=== PATIENT | female | born 1985 | race African-American/Black ===

== ENCOUNTER 2019-08-11 13:08 | Observation (INO) | payer MEDICAID ==
[~2019-08-11 13:08] MED LIST: IBUP1TAB73 PO; KEPP500 MT; LEVO75TA7 MT
== END 2019-08-11 14:15 | disposition home or self-care (01) ==
LOC: 8 EST LDRP 13:08
PROVIDERS: ADMIT Obstetrics & Gynecology; ATTEND Obstetrics & Gynecology
DX: O9A.212 Injury, poisoning and certain other consequences of external causes complicating pregnancy, second trimester (principal); R10.9 Unspecified abdominal pain; M54.9 Dorsalgia, unspecified; Z3A.27 27 weeks gestation of pregnancy; Y04.0XXA Assault by unarmed brawl or fight, initial encounter; Y93.89 Activity, other specified; Y92.89 Other specified places as the place of occurrence of the external cause; Y99.8 Other external cause status
CPT/HCPCS: G0378

== ENCOUNTER 2022-07-01 00:20 | Emergency (ER) | payer MEDICAID ==
[~2022-07-01] VITALS: Ht 165.1 cm; Wt 68.0 kg
[2022-07-01 00:31] VITALS: BP 113/67
[2022-07-01 03:00] LABS: BASOPHILS % 0.7 % (0.0-2.0); EOSINOPHILS % 0.6 % (0.0-5.0); HEMATOCRIT. 32.5 % (36.0-48.0); HEMOGLOBIN. 10.6 g/dL (12.0-16.0); LYMPHOCYTES % 32.7 % (20.0-50.0); MEAN CORPUSCULAR HEMOGLOBIN 24.2 pg (28.0-32.0); MEAN CORPUSCULAR VOLUME 74.3 fL (81.0-99.0); MEAN PLATELET VOLUME 7.6 fl (7.4-10.4); MONOCYTES % 8.8 % (2.0-8.0); NEUTROPHILS % 57.2 % (40.0-76.0); PLATELET 330 x1000/uL (130-400); RED BLOOD CELL COUNT 4.37 mill/uL (4.2-5.4); RED CELL DISTRIBUTION WIDTH 19.8 % (11.6-14.6)
[2022-07-01 03:08] LABS: CHLORIDE 109 mEq/L (98-107)
[2022-07-01] MEDS ORDERED: PREGABALIN 50 MG CAPSULE PO NR (03:33)
[2022-07-01] MEDS ORDERED: IBUPROFEN 600MG TABLET PO NR (03:33)
[2022-07-01] MEDS ORDERED: METHOCARBAMOL 500MG TABLET PO NR (03:45)
[2022-07-01] MEDS ORDERED: PHENYTOIN SODIUM EXTENDED 100MG CAPSULE PO NR (03:45)
[2022-07-01 04:50] LABS: HCG SCREEN NEGATIVE
== END 2022-07-01 04:36 | disposition home or self-care (01) ==
LOC: ER 00:20
DX: S00.83XA Contusion of other part of head, initial encounter (principal); S49.91XA Unspecified injury of right shoulder and upper arm, initial encounter; G40.909 Epilepsy, unspecified, not intractable, without status epilepticus; G89.4 Chronic pain syndrome; E11.9 Type 2 diabetes mellitus without complications; Y04.0XXA Assault by unarmed brawl or fight, initial encounter; Y93.89 Activity, other specified; Y92.89 Other specified places as the place of occurrence of the external cause
CPT/HCPCS: 36415; 80048; 81025; 82962; 84703; 85025; 99284

== ENCOUNTER 2022-12-10 23:34 | Emergency (ER) | payer MEDICAID ==
[~2022-12-10] VITALS: Ht 162.6 cm; Wt 59.0 kg
[2022-12-10 23:39] VITALS: BP 114/60; PULSE 98; RESP 18; TEMP 99.1; O2SAT 96
== END 2022-12-11 06:45 | disposition home or self-care (01) ==
LOC: ER 23:34
DX: S01.01XA Laceration without foreign body of scalp, initial encounter (principal); F17.200 Nicotine dependence, unspecified, uncomplicated; R51.9 Headache, unspecified; Z86.59 Personal history of other mental and behavioral disorders; Y04.0XXA Assault by unarmed brawl or fight, initial encounter; Y93.89 Activity, other specified; Y92.89 Other specified places as the place of occurrence of the external cause; Y99.8 Other external cause status
CPT/HCPCS: 12001; 99284

== ENCOUNTER 2023-07-05 16:38 | Emergency (ER) | payer MEDICAID, OTHER ==
[~2023-07-05] VITALS: Ht 165.1 cm; Wt 79.4 kg
[2023-07-05 16:48] VITALS: BP 115/71; RESP 16; O2SAT 99
[2023-07-05 16:54] VITALS: PULSE 112
[2023-07-05 18:15] VITALS: TEMP 98.2
[2023-07-05] MEDS ORDERED: ACETAMINOPHEN 325MG TABLET PO ONE (18:15)
[2023-07-05] MEDS ORDERED: MORPHINE SULFATE 4 MG/ML CPJ (NOT FOR IM USE) IV STA (22:16)
[2023-07-05] MEDS ORDERED: SODIUM CHLORIDE 0.9% 1,000 ML IV ONE (22:30)
[2023-07-05] MEDS ORDERED: AMPICILLIN SOD/SULBACTAM NA 3 G in SODIUM CHLORIDE 0.9% 100 ML IV SCH (22:30)
[2023-07-05 22:53] LABS: BASOPHILS % 0.6 % (0.0-2.0); EOSINOPHILS % 2.5 % (0.0-5.0); HEMATOCRIT. 27.4 % (36.0-48.0); HEMOGLOBIN. 8.7 g/dL (12.0-16.0); LYMPHOCYTES % 42.4 % (20.0-50.0); MEAN CORPUSCULAR HEMOGLOBIN 22.2 pg (28.0-32.0); MEAN CORPUSCULAR VOLUME 69.5 fL (81.0-99.0); MEAN PLATELET VOLUME 6.7 fl (7.4-10.4); MONOCYTES % 9.6 % (2.0-8.0); NEUTROPHILS % 44.9 % (40.0-76.0); PLATELET 335 x1000/uL (130-400); RED BLOOD CELL COUNT 3.93 mill/uL (4.2-5.4); RED CELL DISTRIBUTION WIDTH 18.2 % (11.6-14.6); WHITE BLOOD COUNT 6.4 x1000/uL (4.5-11.0)
[2023-07-05 22:54] LABS: ADD RBC MORPHOLOGY YES; DIFFERENTIAL COMMENT 1
[2023-07-05 23:05] LABS: ANISOCYTOSIS 1+; HYPOCHROMASIA 1+; MICROCYTOSIS 3+; PLATELET ESTIMATE NORMAL
[2023-07-05 23:07] LABS: ALANINE AMINOTRANSFERASE 17 IU/L (10-49); ALBUMIN 4.2 g/dL (3.2-4.8); ASPARTATE AMINOTRANSFERASE 23 IU/L (<34); BILIRUBIN TOTAL 0.3 mg/dL (0.1-1.0); CALCIUM 8.8 mg/dL (8.7-10.4); CARBON DIOXIDE 27 mEq/L (21-32); CHLORIDE 107 mEq/L (98-107); CREATININE 0.7 mg/dL (0.6-1.0); GLUCOSE 78 mg/dL (70-105); POTASSIUM 3.5 mEq/L (3.5-5.1); PROTEIN TOTAL 6.7 g/dL (6.0-8.3); SODIUM 140 mEq/L (136-145); UREA NITROGEN BLOOD 14 mg/dL (9-23)
== END 2023-07-06 01:45 | disposition left against medical advice (07) ==
LOC: ER 16:38
DX: S02.40FA Zygomatic fracture, left side, initial encounter for closed fracture (principal); S02.832A Fracture of medial orbital wall, left side, initial encounter for closed fracture; G89.11 Acute pain due to trauma; G40.909 Epilepsy, unspecified, not intractable, without status epilepticus; Z98.890 Other specified postprocedural states; Y08.89XA Assault by other specified means, initial encounter; Y93.89 Activity, other specified; Y92.89 Other specified places as the place of occurrence of the external cause; Y99.8 Other external cause status
CPT/HCPCS: 99284; 70450; 80053; 85025; 87040; 36415; 70486; 72125; J0295; J7050; J7030

== ENCOUNTER 2023-11-06 18:10 | Emergency (ER) | payer MEDICAID ==
[~2023-11-06] VITALS: Ht 167.6 cm; Wt 85.0 kg
[2023-11-06 18:31] VITALS: TEMP 98.5; O2SAT 100
[2023-11-06 19:02] LABS: BASOPHILS % 0.8 % (0.0-2.0); EOSINOPHILS % 1.4 % (0.0-5.0); HEMATOCRIT. 24.8 % (36.0-48.0); HEMOGLOBIN. 8.4 g/dL (12.0-16.0); LYMPHOCYTES % 30.1 % (20.0-50.0); MEAN CORPUSCULAR HEMOGLOBIN 23.1 pg (28.0-32.0); MEAN CORPUSCULAR HGB CONC 33.9 g/dL (31.0-37.0); MEAN CORPUSCULAR VOLUME 68.2 fL (81.0-99.0); MEAN PLATELET VOLUME 6.8 fl (7.4-10.4); MONOCYTES % 8.3 % (2.0-8.0); NEUTROPHILS % 59.4 % (40.0-76.0); PLATELET 452 x1000/uL (130-400); RED BLOOD CELL COUNT 3.64 mill/uL (4.2-5.4); WHITE BLOOD COUNT 8.6 x1000/uL (4.5-11.0)
[2023-11-06 19:08] LABS: ADD RBC MORPHOLOGY YES; DIFFERENTIAL COMMENT 1
[2023-11-06 19:09] LABS: CHLORIDE 107 mEq/L (98-107); SODIUM 138 mEq/L (136-145)
[2023-11-06 19:10] LABS: CALCIUM 8.8 mg/dL (8.7-10.4); CARBON DIOXIDE 28 mEq/L (21-32)
[2023-11-06 19:15] LABS: CREATININE 0.7 mg/dL (0.6-1.0); GLUCOSE 79 mg/dL (70-105); UREA NITROGEN BLOOD 10 mg/dL (9-23)
[2023-11-06 20:19] LABS: B-HCG QUANTITATIVE 128942 mIU/mL (<3)
[2023-11-06 20:23] LABS: ANISOCYTOSIS 2+; HYPOCHROMASIA 1+; MICROCYTOSIS 3+; PLATELET ESTIMATE INCREASED
[2023-11-06 20:57] VITALS: BP 118/57; PULSE 89; RESP 17
== END 2023-11-06 20:58 | disposition home or self-care (01) ==
LOC: ER 18:10
DX: O46.91 Antepartum hemorrhage, unspecified, first trimester (principal); Z3A.09 9 weeks gestation of pregnancy; Z85.9 Personal history of malignant neoplasm, unspecified; Z98.890 Other specified postprocedural states
CPT/HCPCS: 36415; 76801; 80048; 84702; 85025; 86850; 86900; 99284

== ENCOUNTER 2024-03-13 18:35 | Emergency (ER) | payer MEDICAID ==
[~2024-03-13] VITALS: Ht 165.1 cm; Wt 84.0 kg
[2024-03-13 18:40] VITALS: O2SAT 97
[2024-03-13] MEDS ORDERED: ACETAMINOPHEN 325MG TABLET PO PRN (19:15)
[2024-03-13 19:31] LABS: BASOPHILS % 0.5 % (0.0-2.0); EOSINOPHILS % 0.7 % (0.0-5.0); HEMATOCRIT. 26.7 % (36.0-48.0); HEMOGLOBIN. 8.5 g/dL (12.0-16.0); MEAN CORPUSCULAR HEMOGLOBIN 22.2 pg (28.0-32.0); MEAN CORPUSCULAR HGB CONC 31.8 g/dL (31.0-37.0); MEAN CORPUSCULAR VOLUME 69.7 fL (81.0-99.0); NEUTROPHILS % 75.8 % (40.0-76.0); PLATELET 384 x1000/uL (130-400); RED BLOOD CELL COUNT 3.83 mill/uL (4.2-5.4); RED CELL DISTRIBUTION WIDTH 20.4 % (11.6-14.6); WHITE BLOOD COUNT 9.8 x1000/uL (4.5-11.0)
[2024-03-13 19:34] LABS: CLARITY URINE CLOUDY (CLEAR); COLOR URINE YELLOW (YELLOW); GLUCOSE URINE NEGATIVE (NEGATIVE); KETONES URINE NEGATIVE (NEGATIVE); LEUKOCYTE ESTERASE URINE NEGATIVE (NEGATIVE); NITRITE URINE NEGATIVE (NEGATIVE); OCCULT BLOOD URINE NEGATIVE (NEGATIVE); PH URINE 6.5 (4.5-8.0); PROTEIN URINE NEGATIVE (NEGATIVE); SPECIFIC GRAVITY URINE 1.016 (1.005-1.030)
[2024-03-13 19:36] LABS: CHLORIDE 109 mEq/L (98-107); POTASSIUM 4.3 mEq/L (3.5-5.1); SODIUM 137 mEq/L (136-145)
[2024-03-13 19:37] LABS: CALCIUM 8.8 mg/dL (8.7-10.4); CARBON DIOXIDE 23 mEq/L (21-32)
[2024-03-13 19:38] LABS: DIFFERENTIAL COMMENT 1
[2024-03-13 19:42] LABS: CREATININE 0.7 mg/dL (0.6-1.0); GLUCOSE 87 mg/dL (70-105); INR 0.9; PROTHROMBIN TIME 9.9 sec (9.6-11.0); UREA NITROGEN BLOOD 12 mg/dL (9-23)
[2024-03-13 19:44] LABS: ALANINE AMINOTRANSFERASE 21 IU/L (10-49); ALBUMIN 3.7 g/dL (3.2-4.8); ASPARTATE AMINOTRANSFERASE 23 IU/L (<34); BILIRUBIN TOTAL 0.2 mg/dL (0.1-1.0); PROTEIN TOTAL 6.6 g/dL (6.0-8.3)
[2024-03-13 20:02] LABS: BACTERIA URINE TRACE; RBC URINE 0-2 /hpf (0-2); SQUAMOUS EPITHELIAL CELL URINE FEW /lpf (RARE/1+); WBC URINE 0-2 /hpf (0-2); YEAST URINE 1+
[2024-03-13 20:11] LABS: B-HCG QUANTITATIVE 92078 mIU/mL (<3)
[2024-03-13 20:15] VITALS: TEMP 36.94740
[2024-03-13 22:14] VITALS: BP 116/63; PULSE 86; RESP 16; O2SAT 98
[2024-03-13] MEDS ORDERED: MICO15CR9 VG (22:33)
== END 2024-03-13 23:15 | disposition home or self-care (01) ==
LOC: ER 18:35
DX: O23.42 Unspecified infection of urinary tract in pregnancy, second trimester (principal); N39.0 Urinary tract infection, site not specified; Z3A.26 26 weeks gestation of pregnancy; O26.892 Other specified pregnancy related conditions, second trimester; M25.551 Pain in right hip
CPT/HCPCS: 36415; 73502; 73552; 73590; 73610; 76705; 76815; 80053; 81003; 84702; 85025; 93970; 99284

== ENCOUNTER 2024-08-02 12:15 | Emergency (ER) | payer MEDICAID, OTHER ==
[~2024-08-02] VITALS: Ht 165.1 cm; Wt 91.0 kg
[~2024-08-02 12:15] MED LIST changes: +MICO15CR9 VG
[2024-08-02 12:21] VITALS: O2SAT 98
[2024-08-02 12:47] VITALS: BP 104/67; TEMP 37.2; O2SAT 100
[2024-08-02] MEDS: ALBUTEROL (0.083%) 2.5MG/3ML NEB HHN SCH (13:35)
[2024-08-02] MEDS: IPRATROPIUM BROMIDE (0.02%) 0.5MG/2.5ML NEB HHN STA (13:35)
[2024-08-02 13:40] VITALS: PULSE 98; RESP 24
[2024-08-02 14:31] LABS: BASOPHILS % 0.5 % (0.0-2.0); EOSINOPHILS % 1.6 % (0.0-5.0); HEMATOCRIT. 34.6 % (36.0-48.0); HEMOGLOBIN. 11.1 g/dL (12.0-16.0); LYMPHOCYTES % 28.5 % (20.0-50.0); MEAN CORPUSCULAR HEMOGLOBIN 24.8 pg (28.0-32.0); MEAN CORPUSCULAR HGB CONC 32.1 g/dL (31.0-37.0); MEAN CORPUSCULAR VOLUME 77.3 fL (81.0-99.0); MEAN PLATELET VOLUME 8.5 fl (7.4-10.4); MONOCYTES % 6.6 % (2.0-8.0); NEUTROPHILS % 62.8 % (40.0-76.0); PLATELET 348 x1000/uL (130-400); RED BLOOD CELL COUNT 4.48 mill/uL (4.2-5.4); RED CELL DISTRIBUTION WIDTH 31.6 % (11.6-14.6); WHITE BLOOD COUNT 11.3 x1000/uL (4.5-11.0)
[2024-08-02 14:32] LABS: DIFFERENTIAL COMMENT 1
[2024-08-02 14:33] LABS: ADD RBC MORPHOLOGY YES; CHLORIDE 112 mEq/L (98-107); POTASSIUM 4.1 mEq/L (3.5-5.1); SODIUM 144 mEq/L (136-145)
[2024-08-02 14:34] LABS: CALCIUM 8.9 mg/dL (8.7-10.4); CARBON DIOXIDE 25 mEq/L (21-32)
[2024-08-02 14:39] LABS: CREATININE 0.9 mg/dL (0.6-1.0); GLUCOSE 99 mg/dL (70-105); UREA NITROGEN BLOOD 14 mg/dL (9-23)
[2024-08-02 14:41] LABS: ALANINE AMINOTRANSFERASE 22 IU/L (10-49); ALBUMIN 4.1 g/dL (3.2-4.8); ASPARTATE AMINOTRANSFERASE 17 IU/L (<34)
[2024-08-02 14:42] LABS: BILIRUBIN TOTAL 0.2 mg/dL (0.1-1.0); PROTEIN TOTAL 7.2 g/dL (6.0-8.3)
[2024-08-02 14:49] LABS: BILIRUBIN DIRECT < 0.1 mg/dL (<=3.0)
[2024-08-02 14:56] LABS: ANISOCYTOSIS 3+; MICROCYTOSIS 1+; PLATELET ESTIMATE NORMAL
[2024-08-02 14:58] LABS: HCG SCREEN NEGATIVE
[2024-08-02] MEDS ORDERED: ALBU90AE INH (15:38)
[2024-08-02 17:50] LABS: INFLUENZA TYPE A Presumptive Negative (Pres. Neg.); INFLUENZA TYPE B Presumptive Negative (Pres. Neg.)
== END 2024-08-02 18:25 | disposition home or self-care (01) ==
LOC: ER 12:43
DX: J45.901 Unspecified asthma with (acute) exacerbation (principal); B34.9 Viral infection, unspecified; Z20.822 Contact with and (suspected) exposure to COVID-19; Z79.890 Hormone replacement therapy; Z79.899 Other long term (current) drug therapy
CPT/HCPCS: 80076; 80048; 84703; 85025; 87804 ×2; 36415; 71045; 94644; 99291; 87426; Z7610 ×2; 94640; 94664

== ENCOUNTER 2024-12-27 18:02 | Emergency (ER) | payer MEDICAID ==
[~2024-12-27] VITALS: Ht 167.6 cm; Wt 82.0 kg
[~2024-12-27 18:02] MED LIST changes: +ALBU90AE INH; +CYCL10TA21 MT; +IBUP-2029 MT; -IBUP1TAB73 PO; -MICO15CR9 VG
[2024-12-27 18:11] VITALS: TEMP 36.8; O2SAT 100
[2024-12-27 20:56] LABS: BASOPHILS % 0.7 % (0.0-2.0); EOSINOPHILS % 3.5 % (0.0-5.0); HEMATOCRIT. 33.3 % (36.0-48.0); HEMOGLOBIN. 11.4 g/dL (12.0-16.0); LYMPHOCYTES % 33.1 % (20.0-50.0); MEAN PLATELET VOLUME 6.7 fl (7.4-10.4); MONOCYTES % 8.6 % (2.0-8.0); NEUTROPHILS % 54.1 % (40.0-76.0); PLATELET 409 x1000/uL (130-400); RED BLOOD CELL COUNT 3.83 mill/uL (4.2-5.4); RED CELL DISTRIBUTION WIDTH 14.4 % (11.6-14.6)
[2024-12-27 21:09] LABS: CREATININE 1.0 mg/dL (0.6-1.0); UREA NITROGEN BLOOD 17 mg/dL (9-23)
[2024-12-27] MEDS: DIPHENHYDRAMINE 25MG CAPSULE PO ONE (21:15)
[2024-12-27] MEDS: BACITRACIN 14GM TUBE TOP ONE (22:39)
[2024-12-27] MEDS: DIPHENHYDRAMINE 25MG CAPSULE PO NR (22:51)
[2024-12-27 23:56] LABS: CLARITY URINE CLEAR (CLEAR); COLOR URINE YELLOW (YELLOW); GLUCOSE URINE NEGATIVE (NEGATIVE); KETONES URINE NEGATIVE (NEGATIVE); LEUKOCYTE ESTERASE URINE 1+ (NEGATIVE); NITRITE URINE NEGATIVE (NEGATIVE); OCCULT BLOOD URINE NEGATIVE (NEGATIVE); PH URINE 5.5 (4.5-8.0); PROTEIN URINE NEGATIVE (NEGATIVE); SPECIFIC GRAVITY URINE 1.024 (1.005-1.030); UROBILINOGEN URINE 1.0 E.U./dL (0.2-1.0)
[2024-12-28 00:06] LABS: RBC URINE NONE SEEN /hpf (0-2); SQUAMOUS EPITHELIAL CELL URINE FEW /lpf (RARE/1+)
[2024-12-28 00:07] LABS: BACTERIA URINE TRACE
[2024-12-28 00:16] LABS: *AMPHETAMINES SCREEN URINE NEGATIVE (NEGATIVE); *BARBITURATES SCREEN URINE NEGATIVE (NEGATIVE); *BENZODIAZEPINES SCREEN URINE NEGATIVE (NEGATIVE); *COCAINE SCREEN URINE PRESUMPTIVE POSITIVE (NEGATIVE); CANNABINOID URINE SCREEN NEGATIVE (NEGATIVE); ECSTASY MDMA SCREEN URINE NEGATIVE (NEGATIVE); METHADONE URINE SCREEN NEGATIVE (NEGATIVE); OPIATES URINE SCREEN NEGATIVE (NEGATIVE); PHENCYCLIDINE URINE SCREEN NEGATIVE (NEGATIVE)
[2024-12-28] MEDS ORDERED: NITR100C MT (00:21)
[2024-12-28] MEDS ORDERED: BACI28.432 TP (00:21)
[2024-12-28] MEDS: DEXAMETHASONE 4MG TABLET PO ONE (01:03)
[2024-12-28] MEDS: DIPHENHYDRAMINE 25MG CAPSULE PO ONE (01:03)
[2024-12-28] MEDS: DEXAMETHASONE 4MG TABLET PO NR (01:08)
[2024-12-28 01:41] VITALS: BP 112/72; PULSE 79; RESP 18; O2SAT 98
== END 2024-12-28 02:11 | disposition home or self-care (01) ==
LOC: ER 18:02
DX: N39.0 Urinary tract infection, site not specified (principal); L50.8 Other urticaria; Z79.890 Hormone replacement therapy; Z59.00 Homelessness unspecified; F17.200 Nicotine dependence, unspecified, uncomplicated; Z79.899 Other long term (current) drug therapy; Z88.5 Allergy status to narcotic agent
CPT/HCPCS: 99284; 80305; 80048; 81003; 85025; 36415; Q0163 ×2; J8540

== ENCOUNTER 2025-05-26 21:54 | Emergency (ER) | payer MEDICAID ==
[~2025-05-26] VITALS: Ht 170.2 cm; Wt 85.0 kg
[~2025-05-26 21:54] MED LIST changes: +BACI28.432 TP; +IBUP-1455 MT; -IBUP-2029 MT; +NITR100C MT
[2025-05-26 22:13] VITALS: O2SAT 97
[2025-05-26 22:58] LABS: BASOPHILS % 0.7 % (0.0-2.0); EOSINOPHILS % 3.3 % (0.0-5.0); HEMATOCRIT. 35.9 % (36.0-48.0); HEMOGLOBIN. 11.8 g/dL (12.0-16.0); LYMPHOCYTES % 49.0 % (20.0-50.0); MEAN PLATELET VOLUME 6.9 fl (7.4-10.4); MONOCYTES % 5.7 % (2.0-8.0); NEUTROPHILS % 41.3 % (40.0-76.0); PLATELET 384 x1000/uL (130-400); RED BLOOD CELL COUNT 4.16 mill/uL (4.2-5.4); RED CELL DISTRIBUTION WIDTH 16.5 % (11.6-14.6)
[2025-05-26 23:12] LABS: CREATININE 0.8 mg/dL (0.6-1.0); UREA NITROGEN BLOOD 10 mg/dL (9-23)
[2025-05-26 23:42] LABS: CLARITY URINE CLOUDY (CLEAR); COLOR URINE ORANGE (YELLOW); GLUCOSE URINE NEGATIVE (NEGATIVE); KETONES URINE NEGATIVE (NEGATIVE); LEUKOCYTE ESTERASE URINE 2+ (NEGATIVE); NITRITE URINE POSITIVE (NEGATIVE); OCCULT BLOOD URINE 3+ (NEGATIVE); PH URINE 5.5 (4.5-8.0); PROTEIN URINE 2+ (NEGATIVE); SPECIFIC GRAVITY URINE 1.020 (1.005-1.030); UROBILINOGEN URINE 1.0 E.U./dL (0.2-1.0)
[2025-05-27] MEDS: CYCLOBENZAPRINE 10MG TABLET PO ONE (00:04)
[2025-05-27] MEDS: KETOROLAC 30MG/ML VIAL IM ONE (00:04)
[2025-05-27] MEDS ORDERED: NITR100C MT (00:55)
[2025-05-27] MEDS ORDERED: CYCL10TA21 MT (00:55)
[2025-05-27] MEDS ORDERED: IBUP-1455 MT (00:55)
[2025-05-27 01:49] VITALS: BP 110/76; PULSE 80; RESP 18; TEMP 36.9; O2SAT 97
[2025-05-27 01:54] LABS: SQUAMOUS EPITHELIAL CELL URINE FEW /lpf (RARE/1+)
[2025-05-27 01:55] LABS: RBC URINE 50-100 /hpf (0-2); WBC URINE 0-2 /hpf (0-2)
[2025-05-27 01:56] LABS: BACTERIA URINE 2+
== END 2025-05-27 01:50 | disposition home or self-care (01) ==
LOC: ER 21:54
DX: N39.0 Urinary tract infection, site not specified (principal); M54.6 Pain in thoracic spine; R31.9 Hematuria, unspecified; Z88.5 Allergy status to narcotic agent
CPT/HCPCS: 99285; 71045; 80048; 81003; 81025; 85025; 36415; 72128; 74176; 96372; J1885